=== PATIENT | female | born 1995 | race African-American/Black ===

== ENCOUNTER 2016-10-16 04:15 | Outpatient (CLI) | payer OTHER ==
[~2016-10-16] VITALS: Ht 157.5 cm; Wt 75.0 kg
== END 2016-10-16 05:27 | disposition home or self-care (01) ==
LOC: M LDO 04:15
PROVIDERS: ATTEND Obstetrics & Gynecology
DX: O47.1 False labor at or after 37 completed weeks of gestation (principal); Z3A.39 39 weeks gestation of pregnancy

== ENCOUNTER 2016-10-16 12:55 | Inpatient (IN) | payer OTHER ==
[2016-10-16] VITALS (24 sets, daily range): BP systolic 126–157; BP diastolic 64–101
[~2016-10-16] VITALS: Ht 162.6 cm; Wt 70.0 kg
[2016-10-16] MEDS ORDERED: LR 1,000 ML IV ONE (13:30)
[2016-10-16] MEDS ORDERED: MORPHINE 10 MG/ML 1ML VIAL IM ONE (16:00)
[2016-10-16] MEDS ORDERED: MORPHINE 10 MG/ML 1ML VIAL IV ONE (16:00)
[2016-10-16] MEDS ORDERED: ONDANSETRON 4MG/2ML VIAL (J2405) IV SCH (16:00)
[2016-10-16] MEDS ORDERED: LACTATED RINGER'S 1000 ML IV STA (19:54)
[2016-10-16 20:29] LABS: MEAN CORPUSCULAR HEMOGLOBIN 31.1 pg (27.0-33.0); MEAN CORPUSCULAR VOLUME 91.5 fl (80.0-96.0); RED CELL DISTRIBUTION WIDTH 13.8 % (11.5-14.5)
[2016-10-16] MEDS ORDERED: FENTANYL 2MCG/ML ROPIVACAINE 0.2% NACL 250 ML CADD As Ordered ONE (20:57)
[2016-10-16] MEDS ORDERED: REFRIGERATOR IV KEYS XX PRN (21:30)
[2016-10-16] MEDS ORDERED: ePHEDrine SULFATE 25 MG/5 ML(5MG/ML) SYRINGE IV PRN (21:30)
[2016-10-16] MEDS ORDERED: EPIDURAL COMMENT XX SCH (21:30)
[2016-10-16] MEDS ORDERED: diphenhydrAMINE INJ 50MG/ML VIAL (J1200) IV PRN (21:30)
[2016-10-16] MEDS ORDERED: ONDANSETRON 4MG/2ML VIAL (J2405) IV PRN (21:30)
[2016-10-16] MEDS ORDERED: FENTANYL/ROPIVACAINE/NACL CADD 250 ML EPIDURAL SCH (21:30)
[2016-10-16] MEDS ORDERED: NALOXONE INJ 0.4 MG/1 ML VIAL (J2310) IV PRN (21:30)
[2016-10-16] MEDS ORDERED: EPIDURAL/PCA KEYS XX PRN (21:30)
[2016-10-16] MEDS ORDERED: LACTATED RINGER'S 1000 ML IV PRN (21:30)
[2016-10-17] VITALS (26 sets, daily range): BP systolic 106–147; BP diastolic 56–88
[2016-10-17] MEDS ORDERED: OXYTOCIN DRIP 30 UNITS in APPROPRIATE DILUENT 1 EA IV SCH ×2 (03:45→09:25)
[2016-10-17] MEDS ORDERED: ceFAZolin SOD 1 GM in D5W MINI-BAG PLUS 50 ML IV SCH (05:00)
--- NOTE | 2016-10-17 08:29 | IPNPDOC ---
Text Note Date of Service The patient was seen on 10/17/16 at 08:27. NOTE accepted care [address] Delgado. FHT Cat 1, mod laya. Reg ctx's. At 0630 was AL/100/0. FHT now with mod laya and no decels. Variable with cx check. Cx C/C/+2/OA, no utility in laboring down, well applied. start pushing Sessions VS,Skye, I+O VS, Skye I+O Laboratory Tests 10/16/16 13:45 Red Blood Count 4.11, Mean Corpuscular Volume 91.5, Mean Corpuscular Hemoglobin 31.1, Mean Corpuscular Hemoglobin Concent 34.0, Red Cell Distribution Width 13.8 Vital Signs Date Time Temp Pulse Resp B/P Pulse Ox O2 Delivery O2 Flow Rate FiO2 10/17/16 06:41 99.6 84 16 136/80 10/16/16 22:03 100 I&O- Last 24 Hours up to 6 AM 10/17/16 06:00 Intake Total 1375 ml Balance 1375 ml MARTIN,CAPRICE Simpson MD Oct 17, 2016 08:29
--- NOTE | 2016-10-17 09:25 | DNPDOC ---
Delivery Note Delivery Note DATE OF DELIVERY: Oct 16, 2016 at 19:51 PREDELIVERY DIAGNOSIS: [39]-[3]/7 weeks' gestation and labor. POST DELIVERY DIAGNOSIS: Delivered. PROCEDURE: [Spontaneous vaginal delivery] PEOPLESOFT ADMINISTRATOR: [Sessions] ANESTHESIA: [Epidural]. ESTIMATED BLOOD LOSS: [200] mL. FINDINGS: [7] pound [15] ounce [male] infant, Score [8]/[9], nuchal cord times [1]. DELIVERY SUMMARY: Patient admitted to labor and delivery for labor, received 2 doses Ancef for GBS prophy. Progressed to C/C and pushed for ~30 min, delivered a healthy male in good shape to her abdomen, no signif delay of the vtx or shoulders. Cord C/C by FOB. Cord blood obtained. Placenta intact with slight traction, fundus massaged and firm. Inner lac to right labia and small 1st degr lac repaired with running 3-0 vicryl in standard fashion. Good cosmesis/hemostasis. SESSIONS,CAPRICE Simpson MD Oct 17, 2016 09:25
[2016-10-17] MEDS ORDERED: RHOGAM 300 MCG (1500 IU) INJ (J2790) IM SCH (09:30)
[2016-10-17] MEDS ORDERED: DIBUCAINE 1% OINTMENT 30GM TOP PRN (09:30)
[2016-10-17] MEDS ORDERED: MEASLES,MUMPS,RUBELLA VACCINE INJ (MMR-II) (90707) SC SCH (09:30)
[2016-10-17] MEDS ORDERED: METOCLOPRAMIDE INJ 10MG/2ML VIAL (J2765) IV PRN (09:30)
[2016-10-17] MEDS ORDERED: DOCUSATE SODIUM 100 MG CAP PO PRN (09:30)
[2016-10-17] MEDS ORDERED: ACETAMINOPHEN TAB 650MG DOSE (2X325MG) PO PRN (09:30)
[2016-10-17] MEDS: PRENATAL VITAMIN TAB PO SCH (11:28)
[2016-10-17] MEDS: IBUPROFEN 800 MG TAB PO PRN ×2 (11:28→20:52)
[2016-10-18 06:23] VITALS: BP 114/58
--- NOTE | 2016-10-18 06:53 | IPNPDOC ---
Text Note Date of Service The patient was seen on 10/18/16 at 06:53. NOTE PPD1 prog note Pt states feeling well, minimal pain. VB slowing. Brst feeding OK. No CP/LP/ SOB. Voiding and ambulatory. VSSAF Fundus at U-1, firm LE no CCE a/p: Doing well. Discharge today, to boarding if baby not d/c'd. Sessions VS,Skye, I+O VSSkye I+O Vital Signs Date Time Temp Pulse Resp B/P Pulse Ox O2 Delivery O2 Flow Rate FiO2 10/18/16 06:23 96.9 76 18 114/58 10/16/16 22:03 100 I&O- Last 24 Hours up to 6 AM 10/18/16 06:00 Intake Total 360 ml Output Total 1000 ml Balance -640 ml SESSIONS,CAPRICE Simpson MD Oct 18, 2016 06:53
--- NOTE | 2016-10-18 07:54 | IPN ---
DATE: 10/18/2016 This lady and her request a circumcision of their male . After discussing risks and benefits of circumcision, the medical and nonmedical indication, the penile block and aftercare expressed understandings of the penile block and aftercare, signed and witnessed the consent form. We await the clearance by the wire turning machine operator.
[2016-10-18] MEDS: PRENATAL VITAMIN TAB PO SCH (08:06)
[2016-10-18 18:10] VITALS: BP 122/63
[2016-10-18] MEDS: IBUPROFEN 800 MG TAB PO PRN (19:54)
[2016-10-19 06:00] VITALS: BP 124/74
[2016-10-19] MEDS ORDERED: TYLE325T5 PO (07:58)
[2016-10-19] MEDS ORDERED: MOTR200T44 PO (07:58)
[2016-10-19] MEDS ORDERED: COLA100C PO (07:58)
[2016-10-19] MEDS ORDERED: PRENTAB9 PO (07:58)
[2016-10-19] MEDS ORDERED: NUPE10OI TOP (07:58)
[2016-10-19] MEDS: PRENATAL VITAMIN TAB PO SCH (09:05)
--- NOTE | 2016-10-19 12:58 | DSES ---
DATE OF ADMISSION: 10/16/2016 DATE OF DISCHARGE: 10/19/2016 This lady is a 21-year-old, 1, now para 1 admitted in active labor, kaleb, at 39 and 3 weeks of gestation with spontaneous rupture of membranes. She delivered a live male infant weighing 7 pounds 15 ounces, male, Apgars of 8 and 9 at one and five minutes respectively. She sustained a first-degree tear which was oversewn in the usual fashion. On her second postoperative day, we discussed phlebitis, cystitis, mastitis, endometritis, and cellulitis; diet, excise and pain management; perineal, breast and wound care. On discharge, hemoglobin 12.8, hematocrit 37.6 and platelets are 157. Her vital signs are her blood pressure is 124/74, respirations 18, pulse 89, and temperature 96.5. The rest of the examination is unremarkable. She is normocephalic, atraumatic. Neck full range of motion. Pupils equal and reactive to light. Distal pulses symmetric. No evidence of deep vein thrombosis (DVT), pulmonary embolus (PE) or superficial phlebitis. Chest is clear bilaterally to bases. No wheezes or rhonchi. No costovertebral angle (CVA) tenderness. Abdomen soft. Uterus two below. Lochia is moderate. Four quadrant bowel sounds are noted. She has no rashes or lesions. No pruritus. No arthralgia or myalgia. No complaints of cough, wheezes, shortness of breath or dyspnea on exertion. No chest pain. Not bleeding. Neurologic complete. No incontinence, urgency or frequency. No nausea, vomiting, diarrhea or constipation. No diabetic issues. She has no past surgical history or medical history. She does not smoke, drink or abuse drugs. She is . There is no domestic violence. In summary, we have a term gestation who delivered a live male for discharge. Medications are given upon discharge. She will have a six week checkup with Citl[facility]manus OB.
== END 2016-10-19 10:41 | disposition home or self-care (01) | DRG 775 ==
LOC: M LDO 12:55 → M LDI 19:51 → M OBS 10-17 11:58
PROVIDERS: ADMIT Obstetrics & Gynecology; ATTEND Obstetrics & Gynecology
PROC: 10E0XZZ Delivery of Products of Conception, External Approach (ICD-10-PCS; principal; 2016-10-16)
PROC: 0HQ9XZZ Repair Perineum Skin, External Approach (ICD-10-PCS; 2016-10-16)
DX: O24.429 Gestational diabetes mellitus in childbirth, unspecified control (principal); Z37.0 Single live birth; Z3A.39 39 weeks gestation of pregnancy; Z91.040 Latex allergy status; O99.824 Streptococcus B carrier state complicating childbirth; J45.909 Unspecified asthma, uncomplicated; O99.52 Diseases of the respiratory system complicating childbirth; O70.0 First degree perineal laceration during delivery

== ENCOUNTER 2017-07-25 16:37 | Emergency (ER) | payer OTHER ==
[~2017-07-25] VITALS: Ht 157.5 cm; Wt 57.8 kg
[~2017-07-25 16:37] MED LIST: COLA100C5 PO; MOTR200T44 PO; NUPE10OI TOP; PRENTAB9 PO; TYLE325T5 PO
[2017-07-25 16:39] VITALS: BP 122/66
== END 2017-07-25 19:06 | disposition left against medical advice (07) ==
LOC: M ED 16:37
DX: R10.9 Unspecified abdominal pain (principal); Z53.21 Procedure and treatment not carried out due to patient leaving prior to being seen by health care provider